=== PATIENT | male | born 1965 | race Caucasian/White ===

== ENCOUNTER → 2019-10-16 | Outpatient (CLI) | payer BC ==
[~2019-10-16] MED LIST: ACET500T68 PO; MULT-245 PO
== END | disposition home or self-care (01) ==
LOC: LAB 11:05
PROVIDERS: ATTEND Registered Nurse
DX: Z01.812 Encounter for preprocedural laboratory examination (principal); Z12.11 Encounter for screening for malignant neoplasm of colon; Z20.828 Contact with and (suspected) exposure to other viral communicable diseases
CPT/HCPCS: C9803; U0003; 36415

== ENCOUNTER → 2019-10-20 | Day surgery (SDC) | payer BC ==
[~2019-10-20] MED LIST changes: +IPRATRPIUM/ALBUTEROL 0.5/2.5MG 3 ML NEBU. NEB PRN; +IV RINGERS SOLUTION,LACTATED 1,000 ML IV SCH; +MIDAZOLAM HCL PF 2 MG/2 ML VIAL. IV ONE; +ONDANSETRON PF 4 MG/2 ML VIAL. IV PRN; +PROPOFOL 10,000 MCG/ML (20ML) VIAL IV ONE
[2019-10-20 10:04] VITALS: BP 107/75
--- NOTE | 2019-10-21 18:06 | PATHOLOGY ---
[facility] Accession Number: [id number] . 01 Material submitted: . PART A: hepatic flexure - HEPATIC FLEXURE POLYP PART B: rectum - RECTAL POLYP . 01 Clinical history: . None provided . 02 Diagnosis: A. Colon biopsies, hepatic flexure polyps: - Tubular adenomas. . B. Colorectal biopsy, rectal polyp: - Tubular adenoma. (JPM:starla; 10/21/2019) [facility] [place] 10/21/2019 0905 Local . 02 Comment: There is no high grade dysplasia or evidence of malignancy. (JPM:starla; 10/21/2019) . 02 Electronically signed: . Jamie Torrez MD, Pathologist NPI- [id number] . 01 Gross description: . A. The specimen is received in formalin, labeled "Mau Uhlrich, hepatic flexure polyp". Received are multiple (greater than 10) segments of pale hines soft tissue ranging in size from 0.1 to 0.4 cm in maximum dimensions. The specimen is submitted entirely in cassette A1. . B. The specimen is received in formalin, labeled "Mau Uhlrich, rectal polyp". Received is a segment of pale hines soft tissue measuring 0.5 cm in maximum dimensions. The specimen is submitted entirely in cassette B1. ([facility]; 10/20/2019) QAC/QAC 10/20/2019 1740 Local . 02 Pathologist provided ICD-10: D12.3, D12.8 . 02 CPT . 131872, 345380 Specimen Comment: A courtesy copy of this report has been sent to [phone], [phone] Specimen Comment: [phone] Specimen Comment: Report sent to / DR JOVEL Performed at: 01 [facility] [address], [place], [place] [id number] MD Harris Escobar MD Phone: [phone] Performed at: 02 [facility] [address] [place], [place] [id number] MD Jamie Torrez MD Phone: [phone]
== END | disposition home or self-care (01) ==
LOC: SURG 08:06
PROVIDERS: ATTEND Internal Medicine Gastroenterology
DX: R19.7 Diarrhea, unspecified (principal); D12.3 Benign neoplasm of transverse colon; D12.8 Benign neoplasm of rectum; K63.89 Other specified diseases of intestine; M19.90 Unspecified osteoarthritis, unspecified site; E03.9 Hypothyroidism, unspecified; Z98.890 Other specified postprocedural states; Z79.899 Other long term (current) drug therapy
CPT/HCPCS: 45380; 45385; J2704; J7120